=== PATIENT | male | born 1940 | race Caucasian/White ===

== ENCOUNTER → 2018-03-30 | Outpatient (CLI) | payer OTHER | LOC: FIMAGING 10:05 | PROVIDERS: ATTEND Internal Medicine | DX: E04.2 Nontoxic multinodular goiter (principal) ==

== ENCOUNTER → 2018-04-11 | Outpatient (CLI) | payer OTHER ==
[~2018-04-11] MED LIST: LIDOCAINE 1% 300 MG/30 ML SDV ONE
== END ==
LOC: FIMAGING 08:02
PROVIDERS: ATTEND Internal Medicine
PROC: 0G9K3ZX Drainage of Thyroid Gland, Percutaneous Approach, Diagnostic (ICD-10-PCS; principal; 2018-04-11)
DX: E04.1 Nontoxic single thyroid nodule (principal)

== ENCOUNTER → 2018-06-07 | Outpatient (CLI) | payer OTHER | LOC: FIMAGING 13:48 | PROVIDERS: ATTEND Orthopaedic Surgery | DX: Z01.818 Encounter for other preprocedural examination (principal); M17.12 Unilateral primary osteoarthritis, left knee ==

== ENCOUNTER 2018-06-20 05:46 | Observation (INO) | payer OTHER ==
[2018-06-20] MEDS ORDERED: ROPIVACAINE 0.2% 80 MG, EPINEPHrine 0.2 MG, KETOROLAC TROMETHAMINE 30 MG in SYRINGE 0 ML IU ONE (06:00)
[2018-06-20] MEDS ORDERED: TRANEXAMIC ACID 3,000 MG in NS (SYRINGE) 50 ML IRR ONE (06:00)
[2018-06-20] MEDS ORDERED: DEXAMETHASONE 4 MG/ML VIAL IVP ONE (06:06)
[2018-06-20] MEDS ORDERED: ceFAZolin 2 GM/DEXTROSE 100 ML IV ONE (06:06)
[2018-06-20] MEDS ORDERED: ACETAMINOPHEN 325 MG TAB PO ONE (06:06)
[2018-06-20] MEDS ORDERED: FAMOTIDINE 20 MG TAB PO ONE (06:06)
[2018-06-20] MEDS ORDERED: TRANEXAMIC ACID 3,000 MG/50 ML BAG IRR ONE (06:36)
[2018-06-20] MEDS ORDERED: VANCOMYCIN 1 GM VIAL ONE (06:36)
[2018-06-20] MEDS ORDERED: MIDAZOLAM 2 MG/2 ML VIAL IVP ONE (06:50)
[2018-06-20] MEDS ORDERED: BUPIVACAINE 0.25% 30 ML SDV ONE (06:53)
[2018-06-20] MEDS ORDERED: LIDOCAINE 2% 100 MG/5 ML SYR ONE (06:55)
[2018-06-20] MEDS ORDERED: DEXAMETHASONE 4 MG/ML VIAL ONE (06:55)
[2018-06-20] MEDS ORDERED: fentaNYL 100 MCG/2 ML INJ ONE (06:55)
[2018-06-20] MEDS ORDERED: ONDANSETRON 4 MG/2 ML VIAL ONE (06:55)
[2018-06-20] MEDS ORDERED: PHENYLEPHRINE HCL 100 MCG/ML SYR ONE (06:55)
[2018-06-20] MEDS ORDERED: PROPOFOL/EMULSION 500 MG/50 ML BOTTLE IV ONE ×2 (06:57→08:01)
[2018-06-20] MEDS ORDERED: ROPIVACAINE HCL 150 MG/30 ML INJ ONE (07:54)
[2018-06-20] MEDS ORDERED: PHENYLEPHRINE HCL 100 MCG/ML SYR IVP PRN (08:31)
[2018-06-20] MEDS ORDERED: MEPERIDINE 25 MG/0.5 ML AMP IVP PRN (08:31)
[2018-06-20] MEDS ORDERED: NALOXONE HCL 0.4 MG/ML INJ IVP PRN (08:31)
[2018-06-20] MEDS ORDERED: fentaNYL 100 MCG/2 ML INJ IVP PRN (08:31)
[2018-06-20] MEDS ORDERED: HYDROmorphONE/DILAUDID 1 MG/ML INJ IVP PRN (08:31)
[2018-06-20] MEDS ORDERED: LR 500 ML IV PRN (08:31)
[2018-06-20] MEDS ORDERED: ACETAMINOPHEN 500 MG TAB PO PRN (08:31)
[2018-06-20] MEDS ORDERED: DIAZEPAM 10 MG/2 ML SYR IVP PRN (08:31)
[2018-06-20] MEDS ORDERED: ENALAPRILAT DIHYDRATE 1.25 MG/ML VIAL IVP PRN (08:31)
[2018-06-20] MEDS ORDERED: oxyCODONE IR 5 MG TAB PO PRN (08:31)
[2018-06-20] MEDS ORDERED: METOCLOPRAMIDE 10 MG/2 ML VIAL IVP PRN ×2 (08:31→08:37)
[2018-06-20] MEDS ORDERED: ONDANSETRON DISINTEGRATING 4 MG TAB PO PRN (08:37)
[2018-06-20] MEDS ORDERED: PROMETHAZINE HCL 25 MG SUPPR PR PRN (08:37)
[2018-06-20] MEDS ORDERED: CYCLOBENZAPRINE 10 MG TAB PO PRN (08:37)
[2018-06-20] MEDS ORDERED: LACTULOSE 20 GM/30 ML UDCUP PO PRN (08:37)
[2018-06-20] MEDS ORDERED: ONDANSETRON 4 MG/2 ML VIAL IVP PRN (08:37)
[2018-06-20] MEDS ORDERED: POLYETHYLENE GLYCOL 3350 17 GM PKT PO PRN (08:37)
[2018-06-20] MEDS ORDERED: BISACODYL 10 MG SUPP PR PRN (08:37)
[2018-06-20] MEDS ORDERED: TEMAZEPAM 15 MG CAP PO PRN (08:37)
[2018-06-20] MEDS ORDERED: diphenhydrAMINE 25 MG CAP PO PRN (08:37)
[2018-06-20] MEDS ORDERED: MAGNESIUM HYDROXIDE 30 ML UDCUP PO PRN (08:37)
[2018-06-20] MEDS ORDERED: PROMETHAZINE HCL 25 MG/ML INJ IVP PRN (08:37)
[2018-06-20] MEDS ORDERED: DIPHENOXYLATE/ATROPINE LOMOTIL 1 TAB PO PRN (08:37)
[2018-06-20] MEDS: LR 1,000 ML IV SCH ×2 (10:11→21:31)
[2018-06-20] MEDS: oxyCODONE IR 5 MG TAB PO PRN ×4 (10:23→21:33)
[2018-06-20] MEDS: ATORVASTATIN CALCIUM 20 MG TAB PO SCH (10:36)
[2018-06-20] MEDS: SENNOSIDES/DOCUSATE SODIUM TAB PO SCH ×2 (10:37→21:32)
[2018-06-20] MEDS: LOSARTAN POTASSIUM 50 MG TAB PO SCH (10:37)
[2018-06-20] MEDS: ACETAMINOPHEN 325 MG TAB PO SCH ×2 (15:07→21:31)
[2018-06-20] MEDS: ceFAZolin 2 GM/DEXTROSE 100 ML IV SCH ×2 (15:08→21:33)
[2018-06-20] MEDS: FAMOTIDINE 20 MG TAB PO SCH (21:32)
[2018-06-20] MEDS: ASPIRIN 81 MG CHEWABLE TAB PO SCH (21:32)
[2018-06-21] MEDS: ACETAMINOPHEN 325 MG TAB PO SCH ×2 (02:33→10:31)
[2018-06-21] MEDS: oxyCODONE IR 5 MG TAB PO PRN ×2 (02:33→07:42)
[2018-06-21] MEDS: ASPIRIN 81 MG CHEWABLE TAB PO SCH (07:41)
[2018-06-21] MEDS: ATORVASTATIN CALCIUM 20 MG TAB PO SCH (07:41)
[2018-06-21] MEDS: FAMOTIDINE 20 MG TAB PO SCH (07:42)
[2018-06-21] MEDS: SENNOSIDES/DOCUSATE SODIUM TAB PO SCH (07:42)
[2018-06-21] MEDS: LOSARTAN POTASSIUM 50 MG TAB PO SCH (07:47)
== END 2018-06-21 10:51 | disposition home or self-care (01) ==
DX: M17.12 Unilateral primary osteoarthritis, left knee (principal); D62 Acute posthemorrhagic anemia
CPT/HCPCS: 27446; 73560; 97116; 97161; 97530; C1713; C1776; J0171; J0690; J1100; J1885; J2001; J2250; J2270; J2370; J2405; J2704; J2795; J3010; J3370